=== PATIENT | male | born 1995 | race Two or more races ===

== ENCOUNTER 2017-08-28 20:42 | Emergency (ER) | payer SELFPAY ==
[~2017-08-28] VITALS: Ht 170.2 cm; Wt 75.3 kg
[2017-08-28 21:07] VITALS: BP 130/87
[2017-08-28] MEDS ORDERED: Tetanus/Diptheria/Pertussis Vaccine 0.5ml Syr IM ONE (21:15)
[2017-08-28] MEDS ORDERED: Bacitracin Oint UD TOPIC ONE (21:15)
[2017-08-28] MEDS ORDERED: Lidocaine 1% Plain 30 ml INJ ONE (21:15)
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
[2017-08-28 22:32] VITALS: BP 121/78
== END 2017-08-28 22:32 | disposition home or self-care (01) ==
LOC: EMR 22:31
DX: S00.01XA Abrasion of scalp, initial encounter (principal); X58.XXXA Exposure to other specified factors, initial encounter; Y93.9 Activity, unspecified; Y99.9 Unspecified external cause status; Z23 Encounter for immunization
CPT/HCPCS: 90471; 90715; 99283